=== PATIENT | male | born 1990 | race Caucasian/White ===

== ENCOUNTER 2016-12-15 17:19 | Emergency (ER) | payer OTHER ==
--- NOTE | ~2016-12-15 | EKG ---
PATIENT: ANNA WILKERSON UNIT #: [id number] Ventricular Rate: 65 BPM Atrial Rate: 65 BPM P-R Interval: 182 ms QRS Duration: 104 ms Q-T Interval: 414 ms QTC Calculation(Bezet): 430 ms P Cidra: 5 degrees Calculated R Cidra: 45 degrees Calculated T Cidra: 31 degrees Diagnosis Line: Normal sinus rhythm Diagnosis Line: Normal ECG Diagnosis Line: No previous ECGs available Diagnosis Line: Confirmed by ASHLEY CARRENO MD ([id number]) on 12/16/2016 Diagnosis Line: 4:08:52 PM INTERPRETING MD: EV CARROLL
--- NOTE | ~2016-12-15 | CR72 ---
[facility] A Service of [facility] RADIOLOGY TEXT RESULTS PATIENT: ANNA WILKERSON LOCATION: [facility] : [birth year] UNIT #: [id number] AGE: [address]: Tien Sanderson MD SEX: M ORDER DR: [id number] [facility] [address] [place], [place] [address] [id number] MR#: [id number] Acc #: [id number] NAME: ANNA WILKERSON : 1990 SEX: M STUDY DATE/TIME: 12/15/2016 17:14 UNIT: [facility] ROOM: STUDY DESCRIPTION: CR Chest Single View Portable Attending Physician: Tien Sanderson M.D. Ordering Physician: Tien Sanderson M.D. Primary Care Physician: Ingrid Atkinson M.D. MEDICAL IMAGING REPORT This report is preliminary unless electronic signature is present EXAM Portable chest 12/15/2016 HISTORY Chest pain left rib pain, fever, nausea and vomiting beginning 12/14/2016 asthma. FINDINGS A single AP portable view of the chest shows both lungs to be clear. The heart is normal in size. The mediastinal contour is normal. No significant bone abnormalities are seen. IMPRESSION Normal portable chest. Dictated by... Selwyn Frazier M.D. THIS IS AN ELECTRONICALLY VERIFIED REPORT Selwyn Frazier M.D. at 12/16/2016 3:16 PM ALFONZO/hany TD: 12/15/2016 21:45 JOB #: [id number] MEDICAL IMAGING REPORT Page 1 of 1 COPY
[2016-12-15 17:08] LABS: BASOPHIL% 0.6 % (0-2.5); EOSINOPHIL% 0.7 % (0.0-7.0); HEMATOCRIT 47.8 % (38.0-50.0); HEMOGLOBIN 16.4 gm/dL (13.0-16.0); LYMPHOCYTE# 1.4 X10e3 (1.0-3.5); LYMPHOCYTE% 26.2 % (17.0-45.0); MEAN CELL VOLUME 88.2 FL (83-96); MEAN CORPUSCULAR HEMOGLOBIN 30.3 PG (28-34); MEAN CORPUSCULAR HGB CONC 34.3 g/dL (30-36); MEAN PLATELET VOLUME 8.8 FL (6.5-11.5); MONOCYTE# 0.4 X10e3 (0-1.0); MONOCYTE% 6.7 % (3.0-12.0); NEUTROPHIL# 3.5 X10e3 (1.5-7.1); NEUTROPHIL% 65.8 % (40-75); PLATELET COUNT 225 X10e3 (140-420); RED BLOOD COUNT 5.42 X10e (3.90-5.60); RED CELL DISTRIBUTION WIDTH 14.2 % (11.0-15.5); WHITE BLOOD COUNT 5.3 X10e3 (4.0-10.5)
[2016-12-15 17:10] LABS: DIFF IND NO
[~2016-12-15 17:19] MED LIST: AMOXICILLIN875 MG PO; ATIVAN PO; AUGMENTIN PO; BACTRIM DS TABL1 TA1 PO; BACTRIM DS TABL1 TAB PO; CLEOCIN PO; COGENTIN PO; COLACE PO; FLEXERIL10 MG PO; IBUPROFEN400 MG PO; IBUPROFEN800 MG PO; INVEGA PO; LORTAB 10-5001 EACH PO; LORTAB 5/500 TA1 TA1 PO; MELATONIN3 MG PO; MOTRIN400 MG PO; MOTRIN600 M1 PO; MOTRIN600 MG PO; NAPROSYN500 MG PO; NAPROXEN PO; ORUDIS75 M1 PO; PYRIDIUM PO; SEROQUEL PO; TOPAMAX PO; TRAZODONE PO; TYLENOL #3 PO; VICODIN 5/1 TAB 5/50 PO; VISTARIL PO
[2016-12-15 17:26] LABS: PARTIAL THROMBOPLASTIN TIME 26.7 SECONDS (23.5-31.3); PROTHROMBIN TIME (PATIENT) 10.2 SECONDS (9.6-11.5)
[2016-12-15 17:39] LABS: ALBUMIN SERUM 4.3 g/dL (3.5-5.0); BILIRUBIN, DIRECT 0.2 mg/dL (0.0-0.2); BILIRUBIN,INDIRECT 0.5 mg/dL (0.0-0.9); BILIRUBIN,TOTAL 0.7 mg/dL (0.2-2.0); BUN/CREATININE RATIO 8.75; CALCIUM SERUM 8.8 mg/dL (8.4-10.2); CREATININE SERUM 0.8 mg/dL (0.6-1.4); GLOM FILT RATE Estimated 125.1 mL/min (>60); PROTEIN TOTAL SERUM 7.2 g/dL (6.0-8.3)
[2016-12-15 17:55] LABS: POC - CKMB <1.0 ng/mL (0.0-7.9); POC - TROPONIN <0.05 ng/mL (<=0.05)
[2016-12-15 18:45] LABS: URINE SOURCE CLEAN CATCH
[2016-12-15 18:54] LABS: POC - CKMB <1.0 ng/mL (0.0-7.9); POC - TROPONIN <0.05 ng/mL (<=0.05)
[2016-12-15 19:01] LABS: URINE APPEARANCE CLEAR; URINE BLOOD NEG (NEG); URINE COLOR DK YELLOW; URINE GLUCOSE NEG (NEG); URINE KETONE NEG (NEG); URINE LEUKOCYTE ESTERASE NEG (NEG); URINE NITRATE NEG (NEG); URINE PROTEIN 1+ (NEG); URINE SPECIFIC GRAVITY 1.031 (1.003-1.035)
[2016-12-15 19:04] LABS: URBCS1 AUWI 0-2 /[HPF] (0-2); URINE BACTERIA AUWI NEG (NEGATIVE); URINE SQUAMOUS EPITHELIAL CELL OCC /[HPF]
[2016-12-15 19:05] LABS: CULTURE INDICATED? NO; URINE BILIRUBIN NEG (NEG)
== END 2016-12-15 19:30 | disposition home or self-care (01) ==
LOC: CED 17:19
PROVIDERS: Emergency Medicine
DX: R07.81 Pleurodynia (principal); R11.2 Nausea with vomiting, unspecified; F31.9 Bipolar disorder, unspecified; J45.909 Unspecified asthma, uncomplicated; Z88.8 Allergy status to other drugs, medicaments and biological substances
CPT/HCPCS: 36415; 71010; 80048; 80076; 81003; 82553; 83690; 84484; 85025; 85379; 85610; 85730; 93005; 96361; 96374; 99284; J2405